=== PATIENT | female | born 1995 | race Asian ===

== ENCOUNTER 2022-05-07 11:18 | Day surgery (SDC) | payer BC ==
[2022-05-07] MEDS ORDERED: SODIUM CHLORIDE 1,000 ML IV STA ×3 (12:32→20:23)
[2022-05-07 14:32] LABS: HEMATOCRIT 39.1 % (32.4-45.2); HEMOGLOBIN 12.7 GM/dL (10.7-15.3); MCH 26.4 pg (25.7-33.7); MCHC 32.4 g/dl (32.0-36.0); MEAN CELL VOLUME 81.5 fl (80-96); MEAN PLT VOLUME 7.5 fl (7.5-11.1); PLATELET COUNT 385 10^3/uL (134-434); RDW 12.7 % (11.6-15.6); WHITE BLOOD COUNT 8.8 K/mm3 (4.0-10.0)
[2022-05-07 14:57] LABS: CALCIUM 8.8 mg/dL (8.5-10.1)
[2022-05-07 14:58] LABS: BLOOD UREA NITROGEN 8.9 mg/dL (7-18)
[2022-05-07 15:01] LABS: CREATININE 0.6 mg/dL (0.55-1.3)
[2022-05-07 15:02] LABS: BILIRUBIN,TOTAL 0.5 mg/dL (0.2-1)
[2022-05-07 15:11] LABS: URINE APPEARANCE CLEAR; URINE BILIRUBIN NEGATIVE (NEGATIVE); URINE COLOR YELLOW; URINE GLUCOSE (UA) NEGATIVE (NEGATIVE); URINE KETONE NEGATIVE (NEGATIVE); URINE LEUK ESTERASE NEGATIVE (NEGATIVE); URINE NITRITE NEGATIVE (NEGATIVE); URINE PROTEIN NEGATIVE (NEGATIVE); URINE UROBILINOGEN 0.2 mg/dL (0.2-1.0)
[2022-05-07 15:14] LABS: HCG,QUALITATIVE URINE Negative
[2022-05-07] MEDS ORDERED: PIPERACILLIN/TAZOB 3.375 GM 3.375 GM in DEXTROSE 5%-WATER - 50 ML IVPB ONE (18:15)
[2022-05-07] MEDS ORDERED: PIPERACILLIN/TAZOB 3.375 GM 3.375 GM/50 ML BAG IVPB ONE (18:28)
[2022-05-07 19:37] LABS: INR 1.01 (0.83-1.09); PROTHROMBIN TIME (PATIENT) 11.6 SEC (9.7-13.0)
[2022-05-07 19:39] LABS: ACTIVATED PTT 31.6 SECONDS (25.2-36.5)
[2022-05-07] MEDS ORDERED: ACETAMINOPHEN 325 MG TABLET (FP) PO PRN (20:13)
[2022-05-07] MEDS: SODIUM CHLORIDE 1,000 ML IV SCH (22:46)
[2022-05-08] MEDS: PIPERACILLIN/TAZOB 3.375 GM 3.375 GM in DEXTROSE 5%-WATER - 50 ML IVPB SCH ×3 (01:53→21:01)
[2022-05-08] MEDS: SODIUM CHLORIDE 1,000 ML IV SCH ×3 (01:53→15:22)
[2022-05-08 08:00] VITALS: BMI 21.2
[2022-05-08 08:36] LABS: BASO % 1.1 % (0-2.0); EOS % 1.4 % (0-4.5); HEMATOCRIT 36.7 % (32.4-45.2); LYMPH % 12.4 % (8-40); MCH 26.8 pg (25.7-33.7); MCHC 32.6 g/dl (32.0-36.0); MEAN CELL VOLUME 82.4 fl (80-96); MEAN PLT VOLUME 7.5 fl (7.5-11.1); MONO % 4.1 % (3.8-10.2); PLATELET COUNT 355 10^3/uL (134-434); RBC 4.46 M/mm3 (3.60-5.2); RDW 12.8 % (11.6-15.6); WHITE BLOOD COUNT 13.5 K/mm3 (4.0-10.0)
[2022-05-08 09:44] LABS: CALCIUM 8.5 mg/dL (8.5-10.1)
[2022-05-08 09:45] LABS: ALBUMIN 3.5 g/dl (3.4-5.0); BLOOD UREA NITROGEN 10.4 mg/dL (7-18)
[2022-05-08 09:48] LABS: CREATININE 0.6 mg/dL (0.55-1.3); PHOSPHOROUS 3.3 mg/dL (2.5-4.9)
[2022-05-08 09:50] LABS: BILIRUBIN,TOTAL 0.9 mg/dL (0.2-1); TOT PROT 6.9 g/dl (6.4-8.2)
[2022-05-08] MEDS ORDERED: ENOXAPARIN NA (PORCINE) 40 MG/0.4 ML DISP.SYRIN SQ SCH (10:00)
[2022-05-08] MEDS ORDERED: ROCURONIUM BROMIDE 50 MG/5 ML SYRINGE ONE (11:45)
[2022-05-08] MEDS ORDERED: LIDOCAINE HCL/PF 2% SDV 5ML VIAL ONE (11:45)
[2022-05-08] MEDS ORDERED: FENTANYL CITRATE/PF 50 MCG/ML VIAL ONE (11:45)
[2022-05-08] MEDS ORDERED: PROPOFOL 20 ML ONE (11:45)
[2022-05-08] MEDS ORDERED: MIDAZOLAM HCL 2 MG/2 ML SINGLE DOSE VIAL ONE (11:46)
[2022-05-08] MEDS ORDERED: SUCCINYLCHOLINE CHLORIDE 200 MG/10 ML SYRINGE ONE (11:46)
[2022-05-08] MEDS ORDERED: BUPIVACAINE HCL/PF 0.25% (2.5MG/ML) 10 ML VIAL ONE (11:54)
[2022-05-08] MEDS ORDERED: DEXAMETHASONE SOD PHOSPHATE 4 MG/1 ML VIAL ONE (12:35)
[2022-05-08] MEDS ORDERED: ONDANSETRON 4 MG/2 ML VIAL ONE (12:35)
[2022-05-08] MEDS ORDERED: KETOROLAC TROMETHAMINE 30 MG/1 ML VIAL ONE (12:35)
[2022-05-08] MEDS ORDERED: INDOCYANINE GREEN 25 MG/10 ML VIAL IVPUSH ONE (12:45)
[2022-05-08] MEDS ORDERED: BUPIVACAINE HCL/PF 0.25% (2.5MG/ML) 10 ML VIAL IJ ONE (12:45)
[2022-05-08] MEDS ORDERED: NEOSTIGMINE METHYLSULFATE 0.5 MG/ML - 10 ML MDV ONE (12:51)
[2022-05-08] MEDS ORDERED: ONDANSETRON 4 MG/2 ML VIAL IVPUSH PRN ×2 (13:12→13:44)
[2022-05-08] MEDS ORDERED: PROMETHAZINE HCL 25 MG/1 ML VIAL IVPUSH PRN (13:12)
[2022-05-08] MEDS ORDERED: ACETAMINOPHEN 1000 MG/100 ML BAG IVPB ONE ×2 (13:12→13:27)
[2022-05-08] MEDS ORDERED: LACTATED RINGERS SOLUTION 1,000 ML IV SCH ×2 (13:15→14:04)
[2022-05-08] MEDS ORDERED: ACETAMINOPHEN INJECTION 100 ML IVPB ONE (13:24)
[2022-05-08] MEDS ORDERED: oxyCODONE HCL 5 MG TABLET PO PRN (13:47)
[2022-05-08] MEDS: KETOROLAC TROMETHAMINE 15 MG/ML VIAL IVPUSH SCH (17:45)
[2022-05-08] MEDS: HEPARIN NA (PORCINE) 5,000 UNITS/ML 1ML VIAL SQ SCH (21:00)
[2022-05-08] MEDS ORDERED: ACETAMINOPHEN 325 MG TABLET (FP) PO PRN (21:00)
[2022-05-09] MEDS ORDERED: KETOROLAC TROMETHAMINE 15 MG/ML VIAL IVPUSH SCH (02:15)
[2022-05-09] MEDS: KETOROLAC TROMETHAMINE 15 MG/ML VIAL IVPUSH SCH ×2 (02:23→02:24)
[2022-05-09] MEDS: ACETAMINOPHEN 500 MG TABLET (FP) PO PRN ×2 (07:54→13:54)
[2022-05-09] MEDS ORDERED: traMADol HCL 50 MG TABLET PO PRN (08:25)
[2022-05-09] MEDS: PIPERACILLIN/TAZOB 3.375 GM 3.375 GM in DEXTROSE 5%-WATER - 50 ML IVPB SCH (08:45)
[2022-05-09] MEDS: HEPARIN NA (PORCINE) 5,000 UNITS/ML 1ML VIAL SQ SCH (09:43)
[2022-05-09] MEDS ORDERED: KETOROLAC TROMETHAMINE 30 MG/1 ML VIAL IVPUSH PRN (11:00)
[2022-05-09 11:38] LABS: HEMATOCRIT 37.6 % (32.4-45.2); HEMOGLOBIN 12.3 GM/dL (10.7-15.3); MCH 26.8 pg (25.7-33.7); MCHC 32.8 g/dl (32.0-36.0); MEAN CELL VOLUME 81.8 fl (80-96); MEAN PLT VOLUME 7.3 fl (7.5-11.1); PLATELET COUNT 387 10^3/uL (134-434); RDW 12.6 % (11.6-15.6); WHITE BLOOD COUNT 16.2 K/mm3 (4.0-10.0)
[2022-05-09 12:02] LABS: CALCIUM 8.9 mg/dL (8.5-10.1)
[2022-05-09 12:03] LABS: ALBUMIN 3.7 g/dl (3.4-5.0)
[2022-05-09 12:06] LABS: CREATININE 0.7 mg/dL (0.55-1.3)
[2022-05-09 12:07] LABS: BILIRUBIN,TOTAL 0.7 mg/dL (0.2-1)
[2022-05-09 12:08] LABS: TOT PROT 7.4 g/dl (6.4-8.2)
[2022-05-09 15:15] VITALS: BP 122/65; PULSE 105; RESP 18; TEMP 98
== END 2022-05-09 16:56 | disposition home or self-care (01) ==
LOC: JER 11:18 → UNDOADMIN 18:17 → JERBED 18:17 → SUATTDRO 18:39 → JASUSAT 18:39 → J7W 18:39 → UNDOADMIN 18:40 → J7W 18:40 → JERBED 22:49 → J7W 22:49 → JASUSAT 05-08 14:09 → UNDODISIN 05-09 16:15 → JASUSAT 05-09 16:56
PROVIDERS: ATTEND Internal Medicine
PROC: 0DTJ4ZZ Resection of Appendix, Percutaneous Endoscopic Approach (ICD-10-PCS; principal; 2022-05-08 11:45)
DX: K35.80 Unspecified acute appendicitis (principal)
CPT/HCPCS: 0241U-QW; 36415; 74177-TC; 80053; 81003; 83690; 83735; 84100; 84703; 85025; 85027; 85610; 85730; 86850; 86900; 86901; 87086; 88304-TC; 93005; 93010; 94760; 99285-25; Q9967